=== PATIENT | female | born 1970 | race Hispanic/Latino ===

== ENCOUNTER → 2018-03-22 | Day surgery (SDC) | payer OTHER ==
[~2018-03-22] MED LIST: BUPIVACAINE 0.25% 30ML SDV INJ ONE; BUPIVACAINE 0.5%/EPI 30 ML SDV INJ ONE; CIPRO500 MG PO; COQ-1030 MG PEG; FENTANYL CITRATE/PF 100MCG/2 ML INJ ONE; FISH OIL 1,0001 EAC2 PO; HYDROMORPHONE 2MG/ML 2 MG/ML ML ONE; IRON PO; LIDOCAINE 1% W/EPINEPHRINE 20 ML VIAL ONE; LIDOCAINE HCL 1% LOCAL INJ 20 ML VIAL ONE; MIDAZOLAM HCL 2 MG/2 ML VIAL ONE; PROAIR HFA INH8.5 GM INH; PROPOFOL IV EMULSION 10 MG/ML 50 ML VIAL ONE; VITAMIN D400 UNIT PO
--- NOTE | 2018-03-22 15:25 | Operative Report ---
DATE OF PROCEDURE: March 22, 2018 PREOPERATIVE DIAGNOSIS: Mass of the left ankle times 2. POSTOPERATIVE DIAGNOSIS: Mass of the left ankle times 2. OPERATION PERFORMED: Excision of masses of the left ankle times 2. ANESTHESIA: General. COMPLICATIONS: None. ESTIMATED BLOOD LOSS: Minimal. DESCRIPTION OF PROCEDURE: With the patient lying in bed in the supine position under good general anesthesia, the left ankle and leg were prepped with Betadine solution and draped in the usual manner. The area overlying the mass in the malleolar area was then infiltrated with 1/4 percent Marcaine with epinephrine. An incision was made over one of the palpable masses, carried down through the skin, and immediately underneath the skin a lipomatous mass was encountered which was slowly and carefully from all of the surrounding structures. It was stuck to the tendons in its deepest aspect, but the mass was totally and completely removed and sent for pathological examination. There was a 2nd mass also present, which was about half a centimeter in size, which was hard and encapsulated, likely representing some type of a calcified cyst of varicose vein. This was also from the tendon and totally and completely resected and sent for pathological examination. The whole area was thoroughly irrigated. Perfect hemostasis was ascertained. The skin was then closed with interrupted sutures of 3-0 nylon. A dressing was applied. The sponge, lap and needle count was correct. The patient tolerated the procedure well and returned to the recovery room in stable condition. Job#: [id number]
[2018-03-22 16:00] VITALS: BP 101/58
== END | disposition home or self-care (01) ==
LOC: OR 10:26
PROVIDERS: ATTEND Surgery
DX: D17.24 Benign lipomatous neoplasm of skin and subcutaneous tissue of left leg (principal); I82.90 Acute embolism and thrombosis of unspecified vein; E11.9 Type 2 diabetes mellitus without complications; J45.909 Unspecified asthma, uncomplicated; R42 Dizziness and giddiness; K57.90 Diverticulosis of intestine, part unspecified, without perforation or abscess without bleeding; Z88.0 Allergy status to penicillin
CPT/HCPCS: 27619; 27630; 81025; 88304; 88305; J1170; J2250; J2704; J2001

== ENCOUNTER → 2020-05-29 | Day surgery (SDC) | payer BC, OTHER ==
[~2020-05-29] MED LIST changes: -BUPIVACAINE 0.25% 30ML SDV INJ ONE; -BUPIVACAINE 0.5%/EPI 30 ML SDV INJ ONE; -FENTANYL CITRATE/PF 100MCG/2 ML INJ ONE; +FOLIC ACID0.4 MG PO; -HYDROMORPHONE 2MG/ML 2 MG/ML ML ONE; +HYOSCYAMINE SULFATE 0.5 MG/ML INJ ONE; -LIDOCAINE 1% W/EPINEPHRINE 20 ML VIAL ONE; -LIDOCAINE HCL 1% LOCAL INJ 20 ML VIAL ONE; +LIDOCAINE HCL 2% LOCAL INJ 5 ML SDV VIAL INJ ONE; +MULTI-VITAMIN1 EACH PO; -PROPOFOL IV EMULSION 10 MG/ML 50 ML VIAL ONE
[2020-05-29 14:04] VITALS: BP 115/80
== END | disposition home or self-care (01) ==
LOC: OR 09:38
PROVIDERS: ATTEND Internal Medicine Gastroenterology
DX: Z12.11 Encounter for screening for malignant neoplasm of colon (principal); D12.4 Benign neoplasm of descending colon; K57.30 Diverticulosis of large intestine without perforation or abscess without bleeding; K64.8 Other hemorrhoids; K59.09 Other constipation; Z87.19 Personal history of other diseases of the digestive system; G47.33 Obstructive sleep apnea (adult) (pediatric); D64.9 Anemia, unspecified; R03.0 Elevated blood-pressure reading, without diagnosis of hypertension; Z88.0 Allergy status to penicillin; Z01.810 Encounter for preprocedural cardiovascular examination; Z01.812 Encounter for preprocedural laboratory examination; Z20.822 Contact with and (suspected) exposure to COVID-19; Z68.42 Body mass index [BMI] 45.0-49.9, adult
CPT/HCPCS: 45378; 45384; 45385; 81025; 93005; J1980; J2001; J2250; U0002

== ENCOUNTER → 2022-05-01 | Outpatient (CLI) | payer OTHER ==
[~2022-05-01] MED LIST changes: -HYOSCYAMINE SULFATE 0.5 MG/ML INJ ONE; -LIDOCAINE HCL 2% LOCAL INJ 5 ML SDV VIAL INJ ONE; -MIDAZOLAM HCL 2 MG/2 ML VIAL ONE
== END ==
LOC: MAMMO 14:21
PROVIDERS: ATTEND Internal Medicine
DX: Z12.31 Encounter for screening mammogram for malignant neoplasm of breast (principal)
CPT/HCPCS: 76830; 76856; 77067